=== PATIENT | male | born 1945 | race Caucasian/White ===

== ENCOUNTER 2017-06-24 23:09 | Emergency (ER) | payer MEDICARE, BC ==
[2017-06-24 23:27] LABS: Hemoglobin 12.6 gm/dL (13.5-18.0); Mean Cell Volume 98.7 fl (78-100); Mean Corpuscular Hemoglobin 32.7 pg (27-31); Mean Corpuscular Hgb Conc 33.2 g/dl (32-36); Mean Platelet Volume 9.1 fl (6.0-9.5); Neutrophil # 4.8 K/mm3 (1.3-6.0); Platelet Count 213 K/mm3 (150-450); Red Blood Count 3.85 M/mm3 (4.7-6.0); Red Cell Distribution Width 12.6 % (11.5-14.0); White Blood Count 7.6 K/mm3 (4.0-10.5)
[2017-06-24] MEDS: NORMAL SALINE 1,000 ML IV ONE (23:27)
[2017-06-24] MEDS: METOPROLOL TARTRATE 1 MG/ML AMPUL IV ONE (23:27)
[2017-06-24] MEDS ORDERED: METOPROLOL TARTRATE 1 MG/ML AMPUL IV ONE (23:27)
[2017-06-24 23:49] LABS: ALT 16 U/L (19-67); AST 10 U/L (0-48); Albumin * 3.5 gm/dl (3.4-5.0); Alkaline Phosphatase * 48 U/L (50-170); Anion Gap 10.6 mmol/L (6.8-13.8); BUN/Creatinine Ratio 22.6 (9.0-21.6); Bilirubin, Total 0.2 mg/dL (0.0-1.1); Blood Urea Nitrogen 24 mg/dL (6-23); CKMB 0.7 ng/mL (0.0-9.0); Ca. Corrected For Albumin 8.5 mg/dL (8.4-10.2); Calcium * 8.4 mg/dL (7.9-10.9); Carbon Dioxide 30.7 mmol/L (24-32.6); Chloride 107 mmol/L (97-106); Glucose * 123 mg/dL (70-110); Potassium 4.3 mmol/L (3.4-4.6); Sodium 144 mmol/L (132-142); Total Protein 6.3 gm/dL (6.2-8.2); Troponin I Less than 0.017 ng/ml (0.00-0.10)
--- NOTE | 2017-06-25 00:01 | ERNOTE ---
Chest Pain/Cardiac HPI Date of Service: 06/24/17 Chief Complaint: Tachycardia Time Seen by Provider: 06/24/17 23:12 Source: patient Exam Limitations: no limitations Immunizations: IMMUNIZATION HX Immunizations Up to Date Yes History of Influenza Vaccine No Hx Pneumococcal Vaccination No Allergies/Adverse Reactions: Allergies Iodinated Contrast- Oral and IV Dye Allergy (Intermediate, Verified 06/24/17 23: 58) Hives iopamidol [From Isovue-128] Adverse Reaction (Intermediate, Verified 06/24/17 23 :57) Hives Home Medications: HOME MEDICATIONS Aspirin [Aspirin Enteric Coated] 81 mg PO DAILY 05/03/14 [Last Taken Unknown] Diltiazem HCl [Cardizem Cd] 120 mg PO BID 05/03/14 [Last Taken Unknown] Lisinopril [Prinivil] 20 mg PO DAILY 05/03/14 [Last Taken Unknown] Flecainide Acetate [Tambocor] 50 mg PO BID 09/02/15 [Last Taken Unknown] Narrative: This is a 71-year-old male with a significant past medical history for intermittent episodic atrial fibrillation who had a colonoscopy done this morning. Patient states that 4 hours prior to presentation to the emergency room he felt "I went into atrial fibrillation "he denies any chest pain shortness of breath dizziness or sensation of syncope or near syncope at that time. He waited 4 hours took his flecainide 2 and decided to come to the emergency room he denies any chest pains or shortness of breath upon presentation to the ER. Review of Systems - Review of Systems Constitutional: Present: no symptoms reported EYE: Present: no symptoms reported ENT: Present: no symptoms reported Respiratory: Present: no symptoms reported Cardiology: Present: See HPI - "I think I'm in atrial fibrillation" Gastrointestinal/Abdominal: Present: no symptoms reported Genitourinary: Present: no symptoms reported Musculoskeletal: Present: no symptoms reported Skin: Present: no symptoms reported - Patient's Past Medical History Patient History - Medical: No pertinent hx Patient History - Cardiac/Respiratory: Atrial Fibrillation, Hypertension, Hyperlipidemia Patient History - Cancer: No Hx of Cancer Patient History - Surgical Procedures: Other Patient History - Other: None - Family History Mother Family History - Medical: Father Family History - Medical: - Social History Living Situations: home Psych History: No pertinent hx Smoking Status: Current every day smoker Have you smoked in the past 12 months: Yes Do you dip or chew tobacco: No Alcohol Use: none Drug Use: none - Immunizations Immunizations Up to Date: Yes Hx Pneumococcal Vaccination: No History of Influenza Vaccine: No Physical Exam - Physical Exam General Appearance: Present: wd/wn, alert, no apparent distress Head Exam: Present: normal inspection, no evidence of injury Neck: Present: normal inspection, nontender, supple Respiratory: Present: no respiratory distress, normal breath sounds, no accessory muscle use, chest nontender, lungs clear Cardiovascular/Chest: Present: no murmur, normal peripheral pulses, tachycardia , irregularly irregular Gastrointestinal/Abdominal: Present: normal bowel sounds ED Progress - Results and Orders Patient's Lab Results:: I have reviewed the patient's lab results. - Vital Signs Patient's Vital Signs:: I have reviewed the patient's vital signs. Vital Signs: Vital Signs 06/24/17 06/24/17 06/24/17 23:18 23:27 23:34 Temperature 36.7 C Pulse Rate 108 H 105 H 98 Respiratory 13 12 Rate Blood Pressure 116/75 116/75 110/62 O2 Sat by Pulse 98 98 Oximetry - EKG EKG: atrial fibrillation EKG read: Reviewed by me - initial EKG was done and revealed atrial fibrillation at a rapid ventricular rate of 108/m repeat EKG reveals normal sinus rhythm at a rate of 58 - Progress/Reassessment Chief Complaint: Tachycardia Plan - Plan Plan: This patient has atrial fibrillation with rapid ventricular rhythm at a rate of 100 to 115. 0.5 mg of Lopressor was administered IV subsequent to which patient 's rhythm converted to sinus rhythm at a rate of 60/m. Patient remained completely stable in our emergency room with a blood pressure of 106/67. He denied any symptoms and refused the chest x-ray or any further workup. This time the patient is stable and appropriate to be discharged home he is to follow -up with us should his atrial fibrillation returns. Departure Clinical Impression: Atrial fibrillation Qualifiers: Atrial fibrillation type: paroxysmal Qualified Code(s): I48.0 - Paroxysmal atrial fibrillation - Departure Disposition: Home self-care Condition: Good Instructions: Atrial Fibrillation, Tooc-ma-Vigb Additional Instructions: Please return to the emergency room with her atrial fibrillation should return. Critical Care Time - Critical Care Critical Time Spent:: Yes Total time (mins) Spent:: 20 Critical Care: Critical care 20 minutes.
[2017-06-25 00:12] VITALS: BP 90/55
== END 2017-06-25 00:05 | disposition home or self-care (01) ==
LOC: ER 23:09
DX: I48.0 Paroxysmal atrial fibrillation (principal); Z79.01 Long term (current) use of anticoagulants; E78.5 Hyperlipidemia, unspecified; I10 Essential (primary) hypertension; F17.200 Nicotine dependence, unspecified, uncomplicated

== ENCOUNTER 2017-08-17 02:13 | Emergency (ER) | payer MEDICARE, BC ==
--- NOTE | 2017-08-17 02:57 | ERNOTE ---
CARDIAC HPI - General Stated Complaint:: palpitations, "I'm in a-fib again". Time Seen by Provider: 08/17/17 02:23 Source: patient Exam Limitations: no limitations - History of Present Illness Initial Comments: pt states he has been in a-fib most of the day. He takes flecanide daily and only takes his eliquis when he feels that he is in a-fib. he has taken eliquis twice today. He states his HR has been up to 130 as taken by his automatic BP cuff. Timing/Duration: 12 hours, constant Severity: moderate Modifying Factors - (Improves): Reports: rest Modifying Factors - (Worsens): Reports: other - "stress" Nitro Today/Relief: no nitro taken today Aspirin Treatment Today: 81 mg x 1, provided at home - Immun/Allergies/Home Medicatons Immunizations: IMMUNIZATION HX Immunizations Up to Date Yes History of Influenza Vaccine No Hx Pneumococcal Vaccination No Allergies/Adverse Reactions: Allergies Allergy/AdvReac Type Severity Reaction Status Date / Time Iodinated Contrast- Oral and Allergy Intermediate Hives Verified 06/24/17 23:58 IV Dye iopamidol [From Isovue-128] AdvReac Intermediate Hives Verified 06/24/17 23:57 Home Medications: Ambulatory Orders Medication Instructions Recorded Aspirin [Aspirin Enteric Coated] 81 mg PO DAILY 05/03/14 Diltiazem HCl [Cardizem Cd] 120 mg PO DAILY 05/03/14 Lisinopril [Prinivil] 20 mg PO DAILY 05/03/14 Apixaban [Eliquis] 2.5 mg PO PRN 06/24/17 Atorvastatin Calcium [Lipitor] 10 mg PO DAILY 06/24/17 Flecainide Acetate 50 mg PO BID 08/17/17 Review of Systems - Review of Systems Constitutional: Present: chills, fever - questionably EENTM: Present: no symptoms reported Respiratory: Present: no symptoms reported Cardiology: Present: palpitations. Absent: chest pain Gastrointestinal/Abdominal: Absent: nausea, vomiting Genitourinary: Present: no symptoms reported Musculoskeletal: Present: no symptoms reported Skin: Absent: rash Neurological: Present: anxiety Endocrine: Absent: excessive sweating, flushing Hematologic/Lymphatic: Present: no symptoms reported - Patient's Past Medical History Patient History - Medical: No pertinent hx Patient History - Cardiac/Respiratory: Atrial Fibrillation, Hypertension, Hyperlipidemia Patient History - Cancer: No Hx of Cancer Patient History - Surgical Procedures: Other Patient History - Other: None - Family History Mother Family History - Medical: Father Family History - Medical: - Social History Psych History: No pertinent hx - Immunizations Immunizations Up to Date: Yes Hx Pneumococcal Vaccination: No History of Influenza Vaccine: No CP Exam - Physical Exam General Appearance: Present: WD/WN, no apparent distress Eyes, Ears, Nose, Throat Exam: Present: normal ENT inspection Neck: Present: non-tender, full range of motion, supple Respiratory: Present: chest non-tender, lungs clear, normal breath sounds, no accessory muscle use Cardiovascular/Chest: Present: normal peripheral pulses, regular rate, rhythm, no chest tenderness Gastrointestinal/Abdominal: Present: normal bowel sounds. Absent: distended, guarding Extremity: Present: normal range of motion, non-tender, normal inspection Neurologic: Present: special police officer II-XII nml as tested, no motor/sensory deficits Skin Exam: Present: normal color, warm/dry, no cyanosis Lymphatic: Present: no adenopathy ED Progress - PROGRESS/REASSESSMENT Condition: Improved Progress Note-Subjective: 08/17/17 02:48 Pt had many questions about a-fib, treatment and the usual course of a-fib. During out conversation, pt converted back to NSR at a rate of 59-60. - VITAL SIGNS Patient's Vital Signs:: I have reviewed the patient's vital signs. - RESULTS AND ORDERS Patient's Lab Results:: I have reviewed the patient's lab results. Results and Orders: 08/17/17 06:48 Laboratory Tests 08/17/17 08/17/17 02:50 02:50 WBC 6.7 Hgb 13.3 L Hct 39.9 L Plt Count 211 Monocytes % 11.0 H Sodium 140 Potassium 4.5 Chloride 106 Carbon Dioxide 28.6 BUN 25 H Creatinine 0.90 Random Glucose 102 Calcium 8.4 Total Bilirubin 0.3 AST 10 ALT 22 Alkaline Phosphatase 50 Troponin I Less than 0.017 Total Protein 6.1 L Albumin 3.3 L - EKG EKG #1 EKG: atrial fibrillation - with RVR rate: 115 EKG Read: Interp. by me EKG #2 EKG: NSR - rate: 62., no ST T wave changes EKG Read: Interp. by me Departure - Departure Clinical Impression: Atrial fibrillation with RVR Disposition: Home Follow Up Needed Condition: Good Instructions: Atrial Fibrillation, [id number] Additional Instructions: See your doctor for follow up if you continue to have these episodes.
[2017-08-17 03:01] LABS: Hematocrit 39.9 % (42.0-52.0); Hemoglobin 13.3 gm/dL (13.5-18.0); Mean Cell Volume 96.1 fl (78-100); Mean Corpuscular Hgb Conc 33.3 g/dl (32-36); Mean Platelet Volume 9.5 fl (6.0-9.5); Neutrophil # 3.5 K/mm3 (1.3-6.0); Neutrophil % 51.7 % (42-75.0); Platelet Count 211 K/mm3 (150-450); Red Blood Count 4.15 M/mm3 (4.7-6.0); Red Cell Distribution Width 12.6 % (11.5-14.0); White Blood Count 6.7 K/mm3 (4.0-10.5)
[2017-08-17 03:28] LABS: ALT 22 U/L (19-67); AST 10 U/L (0-48); Albumin * 3.3 gm/dl (3.4-5.0); Alkaline Phosphatase * 50 U/L (50-170); Anion Gap 9.9 mmol/L (6.8-13.8); BUN/Creatinine Ratio 27.8 (9.0-21.6); Bilirubin, Total 0.3 mg/dL (0.0-1.1); Blood Urea Nitrogen 25 mg/dL (6-23); Ca. Corrected For Albumin 8.6 mg/dL (8.4-10.2); Calcium * 8.4 mg/dL (7.9-10.9); Carbon Dioxide 28.6 mmol/L (24-32.6); Chloride 106 mmol/L (97-106); Glucose * 102 mg/dL (70-110); Potassium 4.5 mmol/L (3.4-4.6); Sodium 140 mmol/L (132-142); Total Protein 6.1 gm/dL (6.2-8.2)
[2017-08-17 03:34] LABS: Troponin I Less than 0.017 ng/ml (0.00-0.10)
[2017-08-17 04:14] VITALS: BP 103/59
== END 2017-08-17 03:55 | disposition home or self-care (01) ==
LOC: ER 02:13
DX: I48.91 Unspecified atrial fibrillation (principal); E78.5 Hyperlipidemia, unspecified; I10 Essential (primary) hypertension; Z79.01 Long term (current) use of anticoagulants

== ENCOUNTER 2020-02-06 06:36 | Inpatient (IN) ==
[~2020-02-06 06:36] MED LIST: ROPIVACAINE HCL/PF 100 MG, EPINEPHrine 0.2 MG, KETOROLAC TROMETHAMINE 30 MG in NORMAL S... IJ PRN; TRANEXAMIC ACID 1,000 MG in NORMAL SALINE 100 ML IV PRN; ceFAZolin SODIUM 1 GM VIAL IV PRN
[2020-02-06] MEDS ORDERED: BUPIVACAINE HCL/EPINEPHRINE/PF 30 ML VIAL IJ ONE (06:50)
[2020-02-06] MEDS ORDERED: MIDAZOLAM HCL/PF 5 MG/ML VIAL ONE (06:50)
[2020-02-06] MEDS ORDERED: PROPOFOL VIAL IV ONE (06:51)
[2020-02-06] MEDS ORDERED: HYDROCORTISONE SOD SUCCINATE 50 MG/ML VIAL ONE (07:25)
--- NOTE | 2020-02-06 07:47 | ANES ---
Anesthesia Pre Procedure Eval HOME MEDICATIONS ezetimibe 10 mg tablet 10 mg PO DAILY 04/12/18 [Last Taken 02/05/20 21:30] flecainide 50 mg tablet 50 mg PO Q12H 04/12/18 [Last Taken 02/05/20 21:30] sucralfate 1 gram tablet 1 g PO BID 04/12/18 [Last Taken 02/05/20] apixaban 2.5 mg tablet 2.5 mg PO BID tab 10/04/19 [Last Taken 02/03/20 21:30] diltiazem HCl 120 mg capsule,extended release 24 hr 120 mg PO DAILY 10/04/19 [Last Taken 02/05/20] doxepin 10 mg capsule 20 mg PO HS cap 10/04/19 [Last Taken 02/05/20 21:30] lisinopril 20 mg tablet 20 mg PO DAILY 10/19/19 [Last Taken 02/06/20 05:45] cholecalciferol (vitamin D3) 125 mcg (5,000 unit) tablet 5,000 unit PO BID tab 01/03/20 [Last Taken 02/05/20] mecobalamin (vitamin B12) 5,000 mcg disintegrating tablet 5,000 mcg PO DAILY tab 01/03/20 [Last Taken 02/05/20] prednisone 5 mg tablet 5 mg PO DAILY 01/03/20 [Last Taken 02/05/20] Cephalexin 500 mg PO QID 02/06/20 [Last Taken 02/05/20 21:30] Cyclobenzaprine HCl 10 mg PO BID PRN 02/06/20 [Last Taken Unknown] Esomeprazole Magnesium 20 mg PO 3XW 02/06/20 [Last Taken 02/04/20] Ferrous Gluconate [Iron] 240 mg PO DAILY 02/06/20 [Last Taken 02/05/20] Multivit-Min/Folic/Vit K/Lycop [Men's 50 Plus Multivitamin Tab] 1 ea PO DAILY 02/06/20 [Last Taken 02/05/20] Allergies/Adverse Reactions: Allergies Allergy/AdvReac Type Severity Reaction Status Date / Time Iodinated Contrast Media Allergy Intermediate Hives Verified 02/06/20 06:57 [Iodinated Contrast- Oral and IV Dye] iopamidol [From Isovue-128] AdvReac Intermediate Hives Verified 02/06/20 06:57 - Planned Procedure Planned Procedure: right total knee Medication List Reviewed:: Yes Allergies Verified: Yes Medical History (Last Reviewed 02/06/20 @ 07:45 by Gabriele Chaudhary CRNA) Duodenitis (Acute) Antral gastritis (Acute) GERD (gastroesophageal reflux disease) (Chronic) Adrenal insufficiency Onset Date: Unknown sees Dr. Chavez, [facility] Allergic rhinitis Onset Date: ~03/21/13 COPD (chronic obstructive pulmonary disease) Onset Date: ~03/21/13 Depression GERD (gastroesophageal reflux disease) Hyperlipidemia Osteoarthrosis Onset Date: ~02/01/17 Bronchitis Complete tear of tendon of rotator cuff Onset Date: ~02/01/17 Dysphagia Epicondylitis Shoulder pain Skin lesion Onset Date: ~07/01/00 2 raised pigmented lesions on his mid back 3 by 4 cm in size each. Both per pathology= seborrheic keratosis. Surgical History (Last Reviewed 02/06/20 @ 07:45 by Gabriele Chaudhary CRNA) S/P right knee arthroscopy Onset Date: 09/21/19 Right knee arthroscopy with partial medial and lateral meniscectomy, chondroplasty of the medial femoral condyle-Dr. Silva H/O arthroscopic knee surgery Onset Date: 03/23/08 Dr Frank H/O colonoscopy Onset Date: 06/24/17 10/16/05 Kannenberg-normal. 05/09/14 Tamara-hyperplastic polyps x2. Recheck 10yrs. 06/24/17 Vipin-hyperplastic polyp. History of cardiac radiofrequency ablation Onset Date: ~12/2017 History of esophagogastroduodenoscopy (EGD) Onset Date: 01/05/20 06/24/17 Vipin-H.pylor negative, minimal chronic inflammation. 01/05/20 Tamara- clotest negative, chronic esophagitis, focal Nguyen's esophagus. History of testicular surgery Onset Date: Unknown testicle removed History of throat surgery Onset Date: ~2009 had a pocket in his throat tightened History of tonsillectomy Onset Date: Unknown Family History (Last Reviewed 02/06/20 @ 07:45 by Gabriele Chaudhary CRNA) Sister Breast cancer Alive and well 1 sister Cancer 1 sister-skin cancer Grandmother Diabetes Father , age 86 Heart disease Cancer prostate cancer Glaucoma Hypertension Mother , age 76 Diabetes Bleeding disorder Cancer breast cancer Sister Uterine cancer - Family Anesthesia History Family History:: no untoward family reactions to anesthesia, no familial bleeding tendencies, no family history of clotting disorders, no family history of premature - Airway/Neck/Teeth Within Normal Limits:: Yes Teeth Condition: missing, poor condition Neck Exam: full range of motion Mallampatti Score: 2 Thyromental (T-M) distance: > 6 cm Mandibulo Hyoid distance: > 3 cm - Respiratory Respiratory Physical: lungs clear Sleep Apnea currently treated: No Sleep Apnea by current assessment: No - Cardiovascular Cardiac History: hypertension, hyperlipidemia Tolerate Activity: Fair Heart Sounds: S1 & S2, Regular - Gastrointestinal NPO since: 2400 Comments:: adrenal insufficiency - Anesthesia Assessment and Plan ASA Class: PS, III Anesthesia Type Plan: Block - Adductor canal block for post op pain relief, Spinal
[2020-02-06] MEDS ORDERED: DEXAMETHASONE SODIUM PHOSPHATE 10 MG/ML VIAL ONE (07:48)
[2020-02-06] MEDS: RINGER'S SOLUTION,LACTATED 1,000 ML IV PRN ×2 (07:53→09:05)
[2020-02-06] MEDS ORDERED: BUPIVACAINE HCL/PF 10 ML VIAL ONE (08:14)
--- NOTE | 2020-02-06 10:35 | ANES ---
Anesthesia Procedure Note Procedure Note: ANESTHESIA PROCEDURE NOTE Date of Procedure: 02/06/2020 Time of procedure: 8:00 AM. Performed by: KIERA Lim CRNA, MSN Examiner Of Currency: Maria R Rose RN. Preprocedure diagnosis: Post total knee arthroplasty pain. Post procedure diagnosis: Same. Procedure: Right adductor Canal Block. Indications: Post right total knee arthroplasty pain relief. Findings: See below. Details of the procedure: The patient was brought to OR #4 and placed in supine position. The patient's right femoral area to the knee was prepped with chlorhexadine and using ultrasound guidance the right femoral artery and nerve was identified and then followed to the level of the adductor canal. Lidocaine 1% was infiltrated to the skin of the intended injection site. Under ultrasound guidance the saphenous nerve was approached with visualization of a 2 inch shielded block needle. Once saphenous nerve was identified with proximity to the needle tip, the saphenous nerve was surrounded with 25 mL bupivacaine 0.25% with 1-200,000 epinephrine. Please see radiology/ultrasound report for details and retained images of the procedure. EBL: 0 Fluids: N/A. Specimen: N/A. Post procedure condition: The patient tolerated the procedure well. No complications were noted. Thank you for this consultation. Gabriele Chaudhary CRNA, ARNP, MSN
--- NOTE | 2020-02-06 10:36 | ANES ---
Post Anesthesia Discharge - Transfer of Care Transfer of Care handoff given to nurse: Yes - Discharge from PACU Discharge from PACU when meets criteria: Yes - Awake and comfortable.
[2020-02-06] MEDS ORDERED: ONDANSETRON HCL/PF 2 MG/ML VIAL IV PRN (10:56)
[2020-02-06] MEDS ORDERED: MAGNESIUM HYDROXIDE 30 ML UDC PO PRN (10:56)
[2020-02-06] MEDS ORDERED: diphenhydrAMINE HCL 50 MG/ML VIAL IV PRN (10:56)
[2020-02-06] MEDS ORDERED: oxyCODONE HCL/ACETAMINOPHEN 1 TAB TABLET PO PRN (10:56)
[2020-02-06] MEDS ORDERED: MAG HYDROX/ALUMINUM HYD/SIMETH 30 ML UDC PO PRN (10:56)
[2020-02-06] MEDS ORDERED: ACETAMINOPHEN 500 MG TABLET PO PRN (10:56)
[2020-02-06] MEDS ORDERED: MORPHINE SULFATE 2 MG/ML DISP.SYRIN IV PRN (10:56)
--- NOTE | 2020-02-06 11:02 | ANES ---
Post Anesthesia Assessment - Vital Signs Vitals: Last Vital Signs Temp 36.2 C 02/06/20 10:50 Pulse 65 02/06/20 10:50 Resp 16 02/06/20 10:50 BP 111/55 02/06/20 10:50 Pulse Ox 96 02/06/20 10:50 Airway Patency: Normal - Mental Status Level Of Consciousness: Awake, Alert, Appropriate - Pain Level Pain Score: 0 - N/V Assessment Nausea/Vomiting Presence: None Dehydration:: No
[2020-02-06] MEDS: NORMAL SALINE 1,000 ML IV PRN ×2 (11:58→20:33)
--- NOTE | 2020-02-06 14:32 | OR ---
Operative Report - Dictated Report Narrative: Date: 02/06/2020 Preoperative diagnosis: Right knee degenerative joint disease. Postoperative diagnosis: Right knee degenerative joint disease. Procedure: Right total knee arthroplasty. Surgeon: Charlie Silva M.D. Apron Cleaner: Beka Easton PA-C provided a set of essential, skilled, educated hands that assisted in positioning, transfer, retraction, manipulation, irrigation, closure of wounds, and placement of dressings all of which could not be provided by the available surgical crew. Anesthesia: Spinal with regional block and local periarticular joint injection. Complications: None Specimens: Bone for disposal. Estimated blood loss: Minimal. Tourniquet time: 71 minutes at 275 millimeters of mercury. Retained implants: Depuy Attune size 8 standard lugged cemented posterior stabilized femoral component. Size 8 cemented rotating bearing tibial platform. 8 by 7 millimeter posterior stabilized cross-linked tibial insert. 41 millimeter medialized patella button. Indications: Cody is a 74-year-old male who has been followed in my clinic for period of time with significant complaints of right knee pain consistent with arthritic changes. They had failed conservative measures including but not limited to activity modification, passage of time, medications, and other conservative measures. Patient wished to proceed with surgical treatment. The risks, benefits, and alternatives were discussed in clinic. The risks of , blood clots, bleeding, infection, nerve/tendon blood vessel/ injury, malposition of components, intraoperative fracture, postoperative limited range of motion, persistent pain, failure of components, and need for additional procedures. Patient wished to proceed consent was obtained after answering all questions. Procedure: After marking the correct extremity on the floor, the patient was taken to the operating room. A timeout was performed. IV antibiotics consisting of 1 g of Ancef were administered prior to the procedure. A regional followed by spinal anesthetic was induced by anesthesia. on the operative table with all bony prominences well-padded. Muñiz catheter was placed and a bump was placed under the operative side buttock. SCDs and MANI hose were utilized on the nonoperative leg. A well-padded tourniquet was applied to the operative thigh. The operative leg was then pre-scrubbed with alcohol prepped and draped in a standard sterile fashion. After exsanguinating the extremity with an Esmarch bandage, the tourniquet was inflated. After marking out the anterior knee for standard incision centered over the patella, the skin was incised and dissected down to the joint retinaculum. The joint retinaculum was marked out as well as the horizontal axis of the patella, and a standard medial parapatellar arthrotomy was then made. The most proximal aspect of the quadriceps tendon and the patella tendon insertion were protected from release. A partial synovectomy was performed as well as a resection of the infrapatellar fat pad. The distal femoral fat pad proximal to the trochlea was also resected using cautery. The soft tissues were elevated off the medial aspect of the proximal tibia using a Mariee elevator ensuring that we did not transect the medial collateral ligament. Upon initial evaluation range of motion was approximately 5 degrees to 125 degrees of flexion. There were signs of advanced arthrosis in the medial and patellofemoral joint spaces. There were large marginal osteophytes which were removed with a rongeur. The knee was hyperflexed and the patella was tucked laterally. Protecting the surrounding soft tissues with Homans, an entry drill was placed down the femoral canal using Whitesides line for guidance into the entry point. The intramedullary femoral alignment sally was utilized in order to cut the distal femur in 5 of valgus resecting 10 millimeters of bone. Next the distal femur was sized to a size 8. An anterior referencing guide was utilized to place the distal femoral cutting block in 3 of external rotation. This was pinned into place. The rotation was confirmed both visually and based on anatomic landmarks. The 4 in 1 cutting jig of the appropriate size was utilized in order to make all bony cuts. Retractors were utilized in order to protect surrounding soft tissues. This cut did not result in any excessive notching. We then cut the box centered over the distal femur. This allowed for resection of the anterior and posterior cruciate ligaments. I then turned my attention to the preparation of the tibia. Using an extra medullary tibial alignment sally, 9 millimeters of bone and cartilage were resected off the lateral articular surface. This was made perpendicular to the mechanical axis of the joint with the alignment sally centered over the ankle mortise. The alignment sally was parallel to the mechanical axis, centered over the medial one third of the tibial tubercle, paralleling the anterior surface of the tibia. We then turned our attention to the remaining meniscus and soft tissues. These were removed while protecting the surrounding ligaments and soft tissues. The marginal osteophytes off the anterior, posterior, medial, lateral aspects of the femur and tibia were removed. The tibia was sized out to a size 8. Next the tibia was drilled and punched in an externally rotated position as confirmed with a drop sally. Next the trial femur and a series of tibial inserts were utilized in order to allow for full extension and maximal flexion. It was found that a 7 millimeter insert gave the best range of motion and stability at multiple flexion points as well as at full extension there was less than 2 mm of gapping both medially and laterally. There is minimal anterior translation with the knee at 90 of flexion and no signs of being able to dislocate the knee. The patella was then prepared. The initial thickness was 25 millimeters. This was reamed down to 15 millimeters parallel to the anterior surface of the patella. It was sized out to a size 41 mm medialized patella button. This was then drilled and trialed. Without any medial restraint the patella tracked appropriately and did not sublux or dislocate. At this point, it was felt these were the appropriate sized implants and all trials were removed. The standard periarticular joint injection consisting of ropivacaine, Toradol, and epinephrine were injected into the periarticular joint tissues. The bony surfaces were thoroughly irrigated with a pulsatile-suction saline irrigation device. A bone plug from the prior resected anterior chamfer cut was placed into the drill hole at the distal femur. The bony surfaces were then dried in preparation for placement of the implants. The cement was vacuum mixed per the personnel administrator's instructions. The cement was placed on the dry bony surfaces and posterior aspect of the implants. The implants were impacted into place, removing all extruded cement. At this point anesthesia administered tranexamic acid per protocol intravenously. The knee was placed in extension with axial loading with the trial insert while the cement cured. A dilute 0.35% betadyne-saline solution was used to irrigate the knee and allowed to sit in the knee while the cement cured. Once the cement cured, all remaining extruded cement was removed. The knee was placed through a range of motion with the trial insert to ensure appropriate range of motion and stability. Final range of motion was approximately 3 to 125 degrees. The knee was again thoroughly irrigated with pulsatile saline lavage. The final polyethylene insert was then impacted into place ensuring no retained soft tissues. The remaining periarticular joint injection was injected. The knee was then packed with lap sponges which were soaked with dilute betadyne solution and the tourniquet was let down. Pressure was held for approximately 2 minutes and then hemostasis was obtained using electrocautery to coagulate any bleeding vessels. The knee was then placed over a triangle and the arthrotomy was closed with interrupted #1 Vicryl after thoroughly irrigating the joint. The deep and subcutaneous tissues were closed with interrupted 0 and 3-0 Vicryl respectively. Skin was closed with a running subcutaneous 3-0 Monocryl and Prineo dressing. 4 x 4's, ABD, Sof-Rol, and a full leg Raul wrap were applied. All sponge, needle, blade, and instrument counts were correct prior to closing the wounds. Postoperative condition: The patient was awoken and transferred to the postanesthesia care unit in stable condition. Plan is to be admitted to the inpatient medical/surgical floor postoperatively for 24 hours of IV antibiotics, physical therapy, occupational therapy, and medical co-management. Patient will be weightbearing as tolerated with range of motion as tolerated. DVT prophylaxis will be with SCDs, MANI hose, and pharmacological anticoagulation. Anticipated hospital stay is approximately 2-4 days.
[2020-02-06] MEDS: FLECAINIDE ACETATE 100 MG TABLET PO SCH ×2 (14:49→22:25)
[2020-02-06] MEDS: oxyCODONE HCL/ACETAMINOPHEN 1 TAB TABLET PO PRN ×3 (14:56→23:18)
[2020-02-06] MEDS: ceFAZolin SODIUM 1 GM in DEXTROSE 5 % IN WATER 100 ML IV SCH ×4 (14:58→22:25)
[2020-02-06] MEDS: CHOLECALCIFEROL 5,000 UNIT TABLET PO SCH (20:32)
[2020-02-06] MEDS: SUCRALFATE 1 G TABLET PO SCH (20:32)
[2020-02-06] MEDS ORDERED: DOXEPIN HCL 10 MG CAPSULE PO SCH (21:00)
[2020-02-06] MEDS ORDERED: SENNOSIDES/DOCUSATE SODIUM 1 TAB TABLET PO SCH (21:00)
[2020-02-07] MEDS: oxyCODONE HCL/ACETAMINOPHEN 1 TAB TABLET PO PRN ×3 (04:31→13:58)
[2020-02-07] MEDS: ceFAZolin SODIUM 1 GM in DEXTROSE 5 % IN WATER 100 ML IV SCH ×2 (05:00)
[2020-02-07 06:32] LABS: Hematocrit 32.1 % (42.0-52.0); Hemoglobin 10.6 gm/dL (13.5-18.0); Mean Cell Volume 95.3 fl (78-100); Mean Corpuscular Hemoglobin 31.5 pg (27-31); Platelet Count 283 K/mm3 (150-450); Red Blood Count 3.37 M/mm3 (4.7-6.0); Red Cell Distribution Width 12.1 % (11.5-14.0); White Blood Count 14.3 K/mm3 (4.0-10.5)
[2020-02-07 06:37] LABS: BUN/Creatinine Ratio 14.3 (9.0-21.6); Calcium * 8.4 mg/dL (7.9-10.9); Carbon Dioxide 28.4 mmol/L (24-32.6); Potassium 4.4 mmol/L (3.4-4.6)
[2020-02-07] MEDS ORDERED: PANTOPRAZOLE SODIUM 20 MG TABLET.DR PO SCH (07:00)
[2020-02-07] MEDS ORDERED: LISINOPRIL 20 MG TABLET PO SCH (09:00)
[2020-02-07] MEDS ORDERED: DILTIAZEM HCL 120 MG CAP.SR.24H PO SCH (09:00)
[2020-02-07] MEDS ORDERED: FERROUS SULFATE 325 MG TABLET PO SCH (09:00)
[2020-02-07] MEDS ORDERED: EZETIMIBE 10 MG TABLET PO SCH (09:00)
[2020-02-07] MEDS: CHOLECALCIFEROL 5,000 UNIT TABLET PO SCH (09:07)
[2020-02-07] MEDS: SUCRALFATE 1 G TABLET PO SCH (09:07)
[2020-02-07] MEDS: FLECAINIDE ACETATE 100 MG TABLET PO SCH (11:33)
[2020-02-07 13:41] VITALS: BP 117/71
--- NOTE | 2020-02-07 14:09 | DS ---
(1) Status post total right knee replacement using cement Problem: Acute Date of Discharge:: 02/07/20 Hospital Course: 74-year-old male postop day 1 status post right total knee arthroplasty. Patient is an uncomplicated stay at our hospital. He was admitted postoperatively for care including PT/OT, return to p.o. diet, pain control. Patient has met all of his PT goals, he is returned to p.o. diet without complication, his pain is well controlled with p.o. pain medication. Exam today of right lower extremity reveals sensation intact light touch, distal capillary refill brisk, 5/5 plantar flexion dorsiflexion ankle, overall limited range of motion at the knee, diffuse mild tenderness to palpation, pernio dressing in place without significant erythema or drainage. Patient will be discharged home with self-care, will begin outpatient PT tomorrow. He will continue to be monitored follow-up with orthopedic outpatient office at 2 weeks postop. I discussed this treatment plan with the patient and the overall goals. He expressed understanding agreed we will continue with following recommendations: -PT/OT progress as tolerated, assistive device PRN -P.o. diet as tolerated -P.o. pain medication PRN -DVT prophylaxis: Restart Eliquis on 02/07/2020 -Follow-up in orthopedic outpatient clinic at 2 weeks postop -Maintain postoperative dressings in place -Disposition: Discharge home with self-care, begin outpatient PT/OT Procedures Performed: see notes below List Procedures: Is post right total knee arthroplasty Results and Findings: Lab Pending Results 02/07/20 06:24: WBC 14.3 H, RBC 3.37 L, Hgb 10.6 L, Hct 32.1 L, MCV 95.3, MCH 31.5 H, MCHC 33.0, RDW 12.1, Plt Count 283, MPV 9.0 02/07/20 06:24: Sodium 138, Plasma Sodium 139, Potassium 4.4, Chloride 105, Carbon Dioxide 28.4, Anion Gap 9.0, BUN 17, Creatinine 1.19, Est GFR (Non-Af Amer) 63, BUN/Creatinine Ratio 14.3, Random Glucose 153 H, Calcium 8.4 Discharge Location: Home Disposition: Home self-care Condition: Stable Discharge Activity: Activity as tolerated, Weight bearing - Assistive device PRN Discharge Diet: General/regular food Referrals: Bandar Garcia DO [Primary Care Provider] - Problem Oriented Discharge Instructions to Patient/Family: Total Knee Replacement, Care After, [id number] Print Language (Peruvian or Northern Irish Available): Peruvian Additional Patient Instructions (free text): Physical Therapy appointment at [facility] rehab in [place] on WednesdayFebruary 08 at 2:00pm, be there by 1:45pm for paper work. Please fax PT order to [phone]. Follow up Orthopedic office appointment on WednesdayFebruary 20 at 9:00am. Prescriptions (Any new or edited meds): oxyCODONE HCL/ACETAMINOPHEN [Percocet 5 MG/325 MG] 1 - 2 tab PO Q4H PRN #60 tab PRN Reason: Severe Pain (Pain Scale 7-10) Transmission Status: Sent to [facility] #[id number] Complete Home Medications List: Complete Home Medication List: ezetimibe 10 mg tablet 10 mg PO DAILY 04/12/18 flecainide 50 mg tablet 50 mg PO Q12H 04/12/18 sucralfate 1 gram tablet 1 g PO BID 04/12/18 apixaban 2.5 mg tablet 2.5 mg PO BID tab 10/04/19 diltiazem HCl 120 mg capsule,extended release 24 hr 120 mg PO DAILY 10/04/19 doxepin 10 mg capsule 20 mg PO HS cap 10/04/19 lisinopril 20 mg tablet 20 mg PO DAILY 10/19/19 cholecalciferol (vitamin D3) 125 mcg (5,000 unit) tablet 5,000 unit PO BID tab 01/03/20 mecobalamin (vitamin B12) 5,000 mcg disintegrating tablet 5,000 mcg PO DAILY tab 01/03/20 prednisone 5 mg tablet 5 mg PO DAILY 01/03/20 Cephalexin 500 mg PO QID 02/06/20 Cyclobenzaprine HCl 10 mg PO BID PRN 02/06/20 Esomeprazole Magnesium 20 mg PO 3XW 02/06/20 Ferrous Gluconate [Iron] 240 mg PO DAILY 02/06/20 Multivit-Min/Folic/Vit K/Lycop [Men's 50 Plus Multivitamin Tab] 1 ea PO DAILY 02/06/20 oxyCODONE HCL/ACETAMINOPHEN [Percocet 5 MG/325 MG] 1 - 2 tab PO Q4H PRN #60 tab 02/07/20 Amb Orders for Discharge: PT Evaluation and Treatment* Location: None Selected Forms: Patient Portal Registration
[2020-02-07] MEDS ORDERED: APIXABAN 2.5 MG TABLET PO SCH (21:00)
== END 2020-02-07 14:45 | disposition home or self-care (01) | DRG 470 ==
LOC: MS 06:36 → EDSTATUS 08:00
PROVIDERS: ADMIT Orthopaedic Surgery; ATTEND Orthopaedic Surgery
CPT/HCPCS: 36415; 73560; 80048; 85027; 97110; 97116; 97162; 97165; 97535; 99212; G0463